=== PATIENT | female | born 1950 | race African-American/Black ===

== ENCOUNTER 2019-05-27 19:31 | Emergency (ER) | payer OTHER, MEDICARE ==
[~2019-05-27] VITALS: Ht 160 cm; Wt 102.1 kg
[~2019-05-27 19:31] MED LIST: AMILORIDE HCL-1 EACH PO; AMLODIPINE BES2.5 MG; DEXILANT60 MG PO; FIBER CHOICE PO; LIDOCAINE HCL50 ML TOP; METFORMIN HCL500 MG PO; MULTI-VITAMIN1 EACH PO; SIMVASTATIN40 MG PO; TRADJENTA5 MG PO
--- OUTSIDE RECORDS SUMMARY | 2019-05-27 19:35 | XMS REPORT ---
Author Author [facility] Address Unknown Phone Unavailable Care Team Providers [employer] Name Role Phone Unavailable Unavailable Problems This patient has no known problems. Allergies, Adverse Reactions, Alerts This patient has no known allergies or adverse reactions. Medications This patient has no known medications. Results Test Description Test Time Test Comments Text Results Atomic Results Result Comments XR Abdomen KUB 1 View 2018-11-23 14:50:01 Patient: PORTIA WONG Date/Time11/23/2018 14:40 CDTReason for ExamConstipationReportXR Abdomen KUB 1 ViewCLINICAL INFORMATION: ConstipationCOMPARISONS: None available.FINDINGS:The bowel gas pattern is nonobstructive. The small bowel loops are nondilated. A moderate amount of retained stool seen in the colon and rectum. Mild degenerative changes are noted in the lower lumbar spine. Moderate arthritis affects the right hip.IMPRESSION:Moderate stool burden. No evidence of obstruction.Location: R16 Final Dictated by: MD Mcarthur Adam FDictated DT/TM: 11/23/2018 2:48 pmSigned by: MD Mcarthur Adam FSigned (Electronic Signature): 11/23/2018 2:50 pm
[2019-05-27] MEDS ORDERED: DIATRIZOATE MEGL/DIATRIZOA SOD 30 ML BTL PO ONE (20:15)
[2019-05-27 21:13] LABS: BASOPHILS % 0.4 % (0.0-1.0); EOSINOPHILS # (AUTO) 0.2 (0.0-0.4); EOSINOPHILS % 2.2 % (0.0-6.0); LYMPHOCYTES # (AUTO) 3.6 (1.0-3.2); LYMPHOCYTES % 35.9 % (18.0-39.1); MEAN CORPUSCULAR HEMOGLOBIN 26.9 pg (28-32); MEAN CORPUSCULAR HGB CONC 31.6 g/dL (31-35); MEAN CORPUSCULAR VOLUME 85.2 fL (81-99); MONOCYTES # (AUTO) 0.6 (0.2-0.8); MONOCYTES % 5.9 % (4.4-11.3); NEUTROPHILS # (AUTO) 5.6 (2.1-6.9); NEUTROPHILS % 55.3 % (38.7-80.0); PLATELET COUNT 390 x10e3/uL (140-360); RED BLOOD COUNT 4.46 x10e6/uL (3.6-5.1)
[2019-05-27 21:33] LABS: ALANINE AMINOTRANSFERASE 10 IU/L (0-55); ALBUMIN 3.6 g/dL (3.5-5.0); ALBUMIN/GLOBULIN RATIO 0.9 (0.8-2.0); ALKALINE PHOSPHATASE 63 IU/L (40-150); ANION GAP 13.6 mmol/L (8-16); BLOOD UREA NITROGEN 9 mg/dL (7-26); BUN/CREATININE RATIO 11 (6-25); CARBON DIOXIDE 29 mmol/L (22-29); CHLORIDE 99 mmol/L (98-107); EST GLOMERULAR FILTRATION RATE > 60 ML/MIN (60-); GLUCOSE 99 mg/dL (74-118); POTASSIUM 3.6 mmol/L (3.5-5.1); SODIUM 138 mmol/L (136-145)
--- NOTE | 2019-05-27 23:47 | Diagnostic Imaging Report ---
EXAM: CT Abdomen and Pelvis WITH contrast INDICATION: Rectal bleeding. COMPARISON: None. TECHNIQUE: Abdomen and pelvis were scanned utilizing a multidetector helical scanner from the lung base to the pubic symphysis after administration of IV contrast. Coronal and sagittal reformations were obtained. Routine protocol was performed. Scan was performed when during portal venous phase. IV CONTRAST: 100 cc's of Isovue 300 ORAL CONTRAST: Gastrografin water mixture. RADIATION DOSE: Total DLP: 814.08 mGy*cm Estimated effective dose: (DLP x 0.015 x size factor) mSv COMPLICATIONS: None FINDINGS: LINES and TUBES: None. LOWER THORAX: There is bibasilar atelectasis. Small hiatal hernia. HEPATOBILIARY: 3 mm low-attenuation lesion in segment 8 of the liver on image 10 series 2.. No biliary ductal dilation. GALLBLADDER: No radio-opaque stones or sludge. No wall thickening. SPLEEN: No splenomegaly. PANCREAS: No focal masses or ductal dilatation. ADRENALS: No adrenal nodules KIDNEYS/URETERS: Kidneys enhance symmetrically. Mild dilatation of the right upper pole collecting system may be due to compression by large parapelvic cyst/dilated pelvis. Right pelvic cyst versus less likely dilated pelvis measuring 9.5 by 8.2 x 6.7 cm. A small left extrarenal pelvis. Additional nonobstructing calculi in the lower pole of the right kidney. GI TRACT: No abnormal distention, wall thickening, or evidence of bowel obstruction. There are diverticula scattered throughout the descending and sigmoid colon without evidence of diverticulitis. Appendix is normal. PELVIC ORGANS/BLADDER: 5 mm consolidation abutting the left UVJ on image 79 series 2. The uterus is somewhat prominent with punctate central calcification, possibly related to the presence of leiomyomata. LYMPH NODES: No lymphadenopathy. VESSELS: Unremarkable. PERITONEUM / RETROPERITONEUM: No free air or fluid. BONES: There are degenerative changes in the lumbar spine. SOFT TISSUES: Unremarkable. IMPRESSION: 1. Diverticulosis coli without acute diverticulitis. Although diverticulosis may result in rectal bleeding, consider gastroenterology consultation for a nonemergent discopathy evaluation. 2. Large, 9.5 cm cystic lesion in the right kidney is felt to represent a large parapelvic cyst versus less likely a dilated renal pelvis. Punctate nonobstructing lower pole right renal calculi. 3. Probable uterine leiomyomata evaluated with this examination. Signed by: Dr. Opal Avila M.D. on 05/27/2019 11:43 PM
[2019-05-28 00:17] VITALS: BP 131/79
[2019-05-28] MEDS ORDERED: SODIUM CHLORIDE 0.9% 50ML 50 ML ONE (04:00)
[2019-05-28] MEDS ORDERED: IOPAMIDOL 370 MG/ML 200 ML INFUS..BTL INJ ONE (04:00)
== END 2019-05-28 00:20 | disposition home or self-care (01) ==
LOC: ER 19:31
DX: K92.1 Melena (principal); R10.9 Unspecified abdominal pain; K57.30 Diverticulosis of large intestine without perforation or abscess without bleeding
CPT/HCPCS: 36415; 74177; 80053; 85025; 99283; Q9967